=== PATIENT | female | born 1960 | race Caucasian/White ===

== ENCOUNTER 2016-11-21 09:31 | Emergency (ER) | payer MEDICAID ==
[~2016-11-21] VITALS: Ht 157.5 cm; Wt 79.4 kg
--- NOTE | 2016-11-21 09:31 | NUR ---
BROUGHT BACK TO BED #5 AND TRIAGED. REPORT GIVEN TO LUPILLO
--- NOTE | 2016-11-21 09:31 | NUR ---
Pt to bed 5, placed in gown for evaluation
[2016-11-21 09:32] VITALS: BP 147/99; PULSE 64; RESP 18; TEMP 97.6; O2SAT 97
--- NOTE | 2016-11-21 09:42 | NUR ---
Dr. Silva at bedside for evaluation
[2016-11-21] MEDS ORDERED: KETOROLAC TROMETHAMINE 60 MG/2 ML VIAL IM ONE (09:45)
--- NOTE | 2016-11-21 09:45 | NUR ---
Pt c/o left mid back pain intermittent sharp x1 month. States that it hurts to breath when the pain is here. Has not taken any OTC medication for pain. No acute distress. Breathing even, unlabored. Denies abd pain, denies n/v/d. Denies chest pain.
[2016-11-21] MEDS ORDERED: METO50TA7 PO (09:51)
[2016-11-21] MEDS ORDERED: LISI-209 PO (09:51)
[2016-11-21] MEDS ORDERED: GLU500 PO (09:51)
--- NOTE | 2016-11-21 09:51 | NUR ---
Medication reconciliation completed with information provided by patient. Any prior medication reconciliation on file was reviewed and corrected.
--- NOTE | 2016-11-21 09:52 | NUR ---
Phleb at bedside for blood draw using 2 pt identifiers.
[2016-11-21 10:05] LABS: BASOPHILS % (AUTO) 0.5 % (0.0-2.0); EOSINOPHILS # (AUTO) 0.1 K/uL (0.0-0.4); EOSINOPHILS % (AUTO) 1.6 % (0.0-4.0); HEMATOCRIT 38.2 % (36-48); LYMPHOCYTES # (AUTO) 1.6 K/uL (1.0-5.5); LYMPHOCYTES % (AUTO) 23.2 % (20.5-51.5); MEAN CORPUSCULAR HEMOGLOBIN 31 pg (27-31); MEAN CORPUSCULAR HGB CONC 34 % (32-36); MEAN CORPUSCULAR VOLUME 91 fL (79.0-98.0); MONOCYTES # (AUTO) 0.4 K/uL (0.0-1.0); MONOCYTES % (AUTO) 5.4 % (1.7-9.3); NEUTROPHILS % (AUTO) 69.3 % (40.0-70.0); PLATELET COUNT (AUTO) 279 K/uL (130-430); RED BLOOD CELL COUNT(AUTO) 4.21 MIL/uL (4.2-6.2); RED CELL DISTRIBUTION WIDTH 13.3 % (9.0-15.0); WHITE BLOOD COUNT (AUTO) 7.1 K/uL (4.8-10.8)
--- NOTE | 2016-11-21 10:09 | NUR ---
Off unit for radiology vial wheelchair.
[2016-11-21 10:12] LABS: CALCIUM 9.2 mg/dL (8.4-11.0); CREATININE 0.71 mg/dL (0.55-1.30); POTASSIUM 4.1 mmol/L (3.5-5.1)
[2016-11-21 10:17] LABS: ALBUMIN 3.8 g/dL (3.4-4.8); TOTAL BILIRUBIN 0.4 mg/dL (0.0-1.0); TOTAL PROTEIN, SERUM 7.9 g/dL (6.4-8.3)
[2016-11-21 10:19] LABS: BILIRUBIN,URINE NEGATIVE (NEGATIVE); BLOOD, URINE NEGATIVE (NEGATIVE); CLARITY/URINE CLEAR (CLEAR); COLOR,URINE YELLOW (YELLOW); GLUCOSE,URINE NEGATIVE (NEGATIVE); KETONES,URINE NEGATIVE (NEGATIVE); LEUKOCYTE ESTERASE ,URINE NEGATIVE (NEGATIVE); NITRITE, URINE NEGATIVE (NEGATIVE); PROTEIN URINE NEGATIVE (NEGATIVE); UROBILINOGEN,URINE 0.2 (0.2-1.0)
[2016-11-21 10:31] LABS: INR 0.9 (0.8-1.2); PROTHROMBIN TIME 10.1 SECS (9.5-12.5)
--- NOTE | 2016-11-21 10:50 | NUR ---
Patient resting quietly. No acute distress noted. Vital signs within normal range. States pain is better 4/10
[2016-11-21 11:29] VITALS: BP 123/73; PULSE 54; RESP 16; TEMP 96.6; O2SAT 98
--- NOTE | 2016-11-21 11:29 | NUR ---
Patient given written and verbal discharge instructions and verbalizes understanding. ER MD discussed with patient the results and treatment provided. Patient in stable condition. ID arm band removed. No Rx given. Patient educated on pain management and to follow up with PMD. Pain Scale 4/10. Opportunity for questions provided and answered.
== END 2016-11-21 11:29 | disposition home or self-care (01) ==
LOC: SED 09:32
DX: R07.89 Other chest pain (principal); E11.9 Type 2 diabetes mellitus without complications; I10 Essential (primary) hypertension
CPT/HCPCS: 36415; 71020; 80053; 81003; 82550; 84484; 84703; 85025; 85379; 85610; 85730; 93005; 96372; 99285; J1885

== ENCOUNTER 2017-04-23 11:42 | Emergency (ER) | payer MEDICAID ==
[~2017-04-23] VITALS: Ht 160 cm; Wt 81.6 kg
[2017-04-23 11:42] VITALS: BP_SYST 117
[~2017-04-23 11:42] MED LIST: GLU500 PO; LISI-209 PO; METO50TA7 PO
--- NOTE | 2017-04-23 11:42 | NUR ---
BROUGHT BACK TO BED #8 AND TRIAGED. REPORT GIVEN TO GRACE/ARNOLDO
--- NOTE | 2017-04-23 12:20 | NUR ---
Pt complains of abdominal pain that radiates to her back and left leg above the knee. Pt states the pain has been there since last Friday after a stress incontinence surgery. Pt followed up with the surgeon on , he ordered an US but still has not received it and the pain has gotten worse 06/15. Denies n/v or fever. 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 No other complaints per pt or noted.
--- NOTE | 2017-04-23 13:00 | NUR ---
ER at bedside examining patient.
[2017-04-23 13:32] LABS: BILIRUBIN,URINE NEGATIVE (NEGATIVE); BLOOD, URINE 1+ (NEGATIVE); CLARITY/URINE SL HAZY (CLEAR); COLOR,URINE YELLOW (YELLOW); GLUCOSE,URINE NEGATIVE (NEGATIVE); KETONES,URINE TRACE (NEGATIVE); LEUKOCYTE ESTERASE ,URINE 3+ (NEGATIVE); NITRITE, URINE NEGATIVE (NEGATIVE); PROTEIN URINE NEGATIVE (NEGATIVE); UROBILINOGEN,URINE 0.2 (0.2-1.0)
[2017-04-23 13:50] LABS: BACTERIA,URINE MANY /HPF (None Seen); WBC,URINE 20-50 /HPF (0-3)
--- NOTE | 2017-04-23 14:02 | NUR ---
Pt is resting comfortably in bed, still complains of pain, Dr Hurtado is aware
[2017-04-23 14:42] LABS: BASOPHILS % (AUTO) 0.4 % (0.0-2.0); EOSINOPHILS # (AUTO) 0.4 K/uL (0.0-0.4); HEMATOCRIT 37.7 % (36-48); HEMOGLOBIN 12.5 g/dL (12.0-16.0); LYMPHOCYTES # (AUTO) 1.8 K/uL (1.0-5.5); LYMPHOCYTES % (AUTO) 25.1 % (20.5-51.5); MEAN CORPUSCULAR HEMOGLOBIN 30 pg (27-31); MEAN CORPUSCULAR HGB CONC 33 % (32-36); MEAN CORPUSCULAR VOLUME 91 fL (79.0-98.0); MONOCYTES # (AUTO) 0.4 K/uL (0.0-1.0); MONOCYTES % (AUTO) 6.1 % (1.7-9.3); NEUTROPHILS # (AUTO) 4.6 K/uL (1.8-7.7); NEUTROPHILS % (AUTO) 62.4 % (40.0-70.0); PLATELET COUNT (AUTO) 249 K/uL (130-430); RED BLOOD CELL COUNT(AUTO) 4.14 MIL/uL (4.2-6.2); RED CELL DISTRIBUTION WIDTH 13.3 % (9.0-15.0); WHITE BLOOD COUNT (AUTO) 7.2 K/uL (4.8-10.8)
[2017-04-23 14:49] LABS: CALCIUM 8.9 mg/dL (8.4-11.0); CREATININE 0.88 mg/dL (0.55-1.30); INR 0.9 (0.8-1.2); POTASSIUM 4.4 mmol/L (3.5-5.1); PROTHROMBIN TIME 10.3 SECS (9.5-12.5)
[2017-04-23 14:53] LABS: ALBUMIN 3.8 g/dL (3.4-4.8); TOTAL BILIRUBIN 0.3 mg/dL (0.0-1.0); TOTAL PROTEIN, SERUM 7.7 g/dL (6.4-8.3)
--- NOTE | 2017-04-23 15:18 | NUR ---
Endorsed care to Kain
--- NOTE | 2017-04-23 15:24 | NUR ---
Patient to CT scan in stable condition
--- NOTE | 2017-04-23 15:45 | NUR ---
Patient back from CT scan in stable condition, patient able to ambulate to bathroom with slow, steady gait. Will contine to observe and assess.
[2017-04-23 16:50] VITALS: BP_SYST 148
--- NOTE | 2017-04-23 16:53 | NUR ---
Patient given written and verbal discharge instructions and verbalizes understanding. ER MD discussed with patient the results and treatment provided. Patient in stable condition. ID arm band removed. IV catheter removed intact and dressing applied, no active bleeding. No RX given. Patient educated on pain management and to follow up with PMD. Pain Scale 5. Opportunity for questions provided and answered.
--- NOTE | 2017-04-23 17:17 | NUR ---
Patient given copy of diagnostic images, no further requests or questions
== END 2017-04-23 16:53 | disposition home or self-care (01) ==
LOC: SED 11:42
DX: G89.18 Other acute postprocedural pain (principal); R10.32 Left lower quadrant pain; E11.9 Type 2 diabetes mellitus without complications; I10 Essential (primary) hypertension; Z98.890 Other specified postprocedural states
CPT/HCPCS: 36415; 71010; 80053; 81000-TC; 83605; 83690-TC; 85025; 85610-TC; 87040-TC; 87086; 93005; 93971; 99285

== ENCOUNTER 2019-01-02 20:24 | Emergency (ER) | payer MEDICAID ==
[~2019-01-02] VITALS: Ht 162.6 cm; Wt 75.3 kg
[2019-01-02 20:30] VITALS: BP_SYST 118
[2019-01-02] MEDS ORDERED: NACL 0.9% 1,000 ML IV ONE (21:26)
[2019-01-02] MEDS ORDERED: KETOROLAC TROMETHAMINE 30 MG VIAL IVP ONE (21:30)
[2019-01-02 22:02] LABS: CALCIUM 8.9 mg/dL (8.4-11.0); CREATININE 0.81 mg/dL (0.55-1.30); POTASSIUM 3.4 mmol/L (3.5-5.1)
[2019-01-02 22:07] LABS: ALBUMIN 3.5 g/dL (3.4-4.8); TOTAL BILIRUBIN 0.4 mg/dL (0.0-1.0)
[2019-01-02 22:27] LABS: WHITE BLOOD COUNT (AUTO) 5.6 K/uL (4.8-10.8)
[2019-01-02 22:28] LABS: HEMATOCRIT 36.6 % (36-48); HEMOGLOBIN 12.3 g/dL (12.0-16.0); LYMPHOCYTES % (AUTO) 25.6 % (20.5-51.5); MEAN CORPUSCULAR HEMOGLOBIN 31 pg (27-31); MEAN CORPUSCULAR HGB CONC 34 % (32-36); MEAN CORPUSCULAR VOLUME 92 fL (79.0-98.0); MONOCYTES % (AUTO) 6.5 % (1.7-9.3); NEUTROPHILS % (AUTO) 66.4 % (40.0-70.0); PLATELET COUNT (AUTO) 220 K/uL (130-430); RED BLOOD CELL COUNT(AUTO) 3.99 MIL/uL (4.2-6.2); RED CELL DISTRIBUTION WIDTH 14.2 % (9.0-15.0)
[2019-01-02 22:29] LABS: BASOPHILS % (AUTO) 0.4 % (0.0-2.0); EOSINOPHILS # (AUTO) 0.1 K/uL (0.0-0.4); EOSINOPHILS % (AUTO) 1.1 % (0.0-4.0); LYMPHOCYTES # (AUTO) 1.4 K/uL (1.0-5.5); MONOCYTES # (AUTO) 0.4 K/uL (0.0-1.0); NEUTROPHILS # (AUTO) 3.7 K/uL (1.8-7.7)
[2019-01-02 22:43] LABS: BILIRUBIN,URINE NEGATIVE (NEGATIVE); BLOOD, URINE 1+ (NEGATIVE); CLARITY/URINE CLEAR (CLEAR); COLOR,URINE YELLOW (YELLOW); GLUCOSE,URINE NEGATIVE (NEGATIVE); KETONES,URINE NEGATIVE (NEGATIVE); LEUKOCYTE ESTERASE ,URINE NEGATIVE (NEGATIVE); NITRITE, URINE NEGATIVE (NEGATIVE); PROTEIN URINE NEGATIVE (NEGATIVE); UROBILINOGEN,URINE 0.2 (0.2-1.0)
[2019-01-02 22:48] LABS: BACTERIA,URINE FEW /HPF (None Seen); WBC,URINE 0-3 /HPF (0-3)
[2019-01-02 23:10] VITALS: BP_SYST 126
== END 2019-01-02 23:10 | disposition home or self-care (01) ==
LOC: SED 20:24
DX: M54.9 Dorsalgia, unspecified (principal); E11.9 Type 2 diabetes mellitus without complications; I10 Essential (primary) hypertension; Z79.899 Other long term (current) drug therapy
CPT/HCPCS: 36415; 74176; 80053; 81000; 85025; 96374; 99284; J1885; J7030

== ENCOUNTER 2020-12-20 20:11 | Emergency (ER) | payer MEDICAID ==
[~2020-12-20] VITALS: Ht 162.6 cm; Wt 79.8 kg
[2020-12-20 20:19] VITALS: BP_SYST 137
--- NOTE | 2020-12-20 20:19 | NUR ---
Patient to ER bed 04 to gown for evaluation. Side rails up.
--- NOTE | 2020-12-20 20:20 | NUR ---
DR. GRAJEDA AT BEDSIDE TO EVALUATE PT STATUS.
--- NOTE | 2020-12-20 20:22 | NUR ---
PT AAO AND AMBULATORY REPORTING RIGHT WRIST PAIN 6/10 X ONE WEKK. PT DENIES ANY TRAUMA.
[2020-12-20] MEDS ORDERED: KETOROLAC TROMETHAMINE 15 MG VIAL IM ONE (20:30)
[2020-12-20] MEDS ORDERED: ACETAMINOPHEN 325 MG TABLET PO ONE (20:30)
--- NOTE | 2020-12-20 20:37 | NUR ---
PORTABLE XRAY AT BEDSIDE.
[2020-12-20] MEDS ORDERED: ACET325T PO (20:41)
[2020-12-20] MEDS ORDERED: IBUP-1619 PO (20:42)
--- NOTE | 2020-12-20 20:50 | NUR ---
WRIST SPLINT APPLIED, DR. GRAJEDA CHECKED PLACEMENT. PT TOLERATED WELL.
[2020-12-20 20:56] VITALS: BP_SYST 137
--- NOTE | 2020-12-20 20:56 | NUR ---
Patient given written and verbal discharge instructions and verbalizes understanding. DR. TARAS RUBIN MD discussed with patient the results and treatment provided. Patient in stable condition. ID arm band removed. Patient educated on pain management and to follow up with PMD. Pain Scale 2/10. Opportunity for questions provided and answered.
== END 2020-12-20 20:56 | disposition home or self-care (01) ==
LOC: SED 20:11
DX: M76.891 Other specified enthesopathies of right lower limb, excluding foot (principal); I10 Essential (primary) hypertension; E11.9 Type 2 diabetes mellitus without complications; Z79.899 Other long term (current) drug therapy
CPT/HCPCS: 29125; 73110; 96372; 99283; J1885

== ENCOUNTER 2021-06-24 09:58 | Emergency (ER) | payer MEDICAID, SELFPAY ==
[~2021-06-24] VITALS: Ht 157.5 cm; Wt 72.6 kg
[~2021-06-24 09:58] MED LIST changes: +ACET325T PO; +IBUP-1619 PO
[2021-06-24 10:11] VITALS: BP_SYST 139
--- NOTE | 2021-06-24 10:14 | NUR ---
Patient to ER bed 6 to gown for evaluation. Side rails up. Report given to Artem NINO.
--- NOTE | 2021-06-24 10:19 | NUR ---
RECEIVED AND IN ROOM 2. CALM, ALERT, RESP UNLABORED, SKIN WARM AND DRY. COMMUNICATES CLEARLY IN FULL COMPLETE SENTECES, STEADY GAIT. NO DISTRESS
--- NOTE | 2021-06-24 10:38 | NUR ---
Dr Marti in to assess
[2021-06-24 11:51] VITALS: BP_SYST 127
--- NOTE | 2021-06-24 11:51 | NUR ---
Patient given written and verbal discharge instructions and verbalizes understanding. ER MD discussed with patient the results and treatment provided. Patient in stable condition. ID arm band removed. Rx of ABX given. Patient educated on pain management and to follow up with PMD. Pain Scale 0/10 Opportunity for questions provided and answered. Medication side effect fact sheet provided.
[2021-06-24] MEDS ORDERED: PRED20TA PO (11:57)
[2021-06-24] MEDS ORDERED: IBUP-1971 PO (11:57)
[2021-06-24] MEDS ORDERED: KETOROLAC TROMETHAMINE 60 MG/2 ML VIAL IM ONE (12:15)
== END 2021-06-24 11:51 | disposition home or self-care (01) ==
LOC: SED 09:58
DX: J02.9 Acute pharyngitis, unspecified (principal); R05 Cough; I10 Essential (primary) hypertension; E11.9 Type 2 diabetes mellitus without complications; Z79.84 Long term (current) use of oral hypoglycemic drugs; Z79.899 Other long term (current) drug therapy
CPT/HCPCS: 96372; 99283; J1885

== ENCOUNTER 2021-09-16 09:52 | Emergency (ER) | payer MEDICAID, SELFPAY ==
[~2021-09-16] VITALS: Ht 162.6 cm; Wt 81.6 kg
[~2021-09-16 09:52] MED LIST changes: +IBUP-1971 PO; +PRED20TA PO
[2021-09-16 10:03] VITALS: BP_SYST 154
--- NOTE | 2021-09-16 10:03 | NUR ---
Pt to bed 4 for evaluation.
--- NOTE | 2021-09-16 10:03 | NUR ---
Pt AAO and ambulatory reporting right ear pain X 1 week. Pt denies any discharge from ear. Pt rates pain 10/10 on pain scale and has prior history of hypertension and diabetes.
--- NOTE | 2021-09-16 10:04 | NUR ---
ER Dr. HENDERSON at bedside examining patient.
[2021-09-16] MEDS ORDERED: IBUP-1969 PO (10:08)
[2021-09-16] MEDS ORDERED: AMOX-423 PO (10:08)
[2021-09-16] MEDS ORDERED: CORTEARS EACH EAR (10:08)
--- NOTE | 2021-09-16 10:25 | NUR ---
BG 134
--- NOTE | 2021-09-16 10:30 | NUR ---
Patient given written and verbal discharge instructions and verbalizes understanding. ER MD DR. HENDERSON discussed with patient the results and treatment provided. Patient in stable condition. ID arm band removed. Rx of AUGMENTIN 500-125, CORTISPORIN EAR DROPS AND MOTRIN given. Patient educated on pain management and to follow up with PMD. Pain Scale 3/10. Opportunity for questions provided and answered. Medication side effect fact sheet provided.
[2021-09-16 10:40] VITALS: BP_SYST 138
== END 2021-09-16 10:38 | disposition home or self-care (01) ==
LOC: SED 09:52
DX: H60.91 Unspecified otitis externa, right ear (principal); I10 Essential (primary) hypertension; E11.9 Type 2 diabetes mellitus without complications; Z79.84 Long term (current) use of oral hypoglycemic drugs; Z79.899 Other long term (current) drug therapy
CPT/HCPCS: 82962; 99283

== ENCOUNTER 2022-12-25 16:44 | Emergency (ER) | payer MEDICAID ==
[~2022-12-25] VITALS: Ht 162.6 cm; Wt 88.5 kg
[~2022-12-25 16:44] MED LIST changes: +AMOX-423 PO; +CORTEARS EACH EAR; +D-ME118S48 PO; +IBUP-1969 PO; +TRAM50TA2 PO
[2022-12-25 16:52] VITALS: BP_SYST 144
--- NOTE | 2022-12-25 16:58 | NUR ---
Placed in room 02 . Placed on compliance monitor, blood pressure machine and pulse oximeter. To gown for exam. Side rails up. Report given to MICA GARZON.
[2022-12-25] MEDS ORDERED: FUROSEMIDE 20 MG/2 ML VIAL IVP ONE (17:00)
--- NOTE | 2022-12-25 17:10 | NUR ---
PATIENT BROUGHT IN WITH FROM HOME FOR KUNZ, SORE THROAT, NASAL CONGESTION SINCE SATRUDAY. REPORTS FEVER, CHILLS NAUSEA AND VOMITING.
--- NOTE | 2022-12-25 17:25 | NUR ---
ER Dr. BEY at bedside examining patient.
[2022-12-25] MEDS ORDERED: KETOROLAC TROMETHAMINE 60 MG/2 ML VIAL IM ONE (17:30)
[2022-12-25] MEDS ORDERED: ONDANSETRON 4 MG ODT TAB PO ONE (17:45)
[2022-12-25] MEDS ORDERED: IBUP-1971 PO (18:04)
[2022-12-25] MEDS ORDERED: PSEU120T57 PO (18:04)
[2022-12-25] MEDS ORDERED: ONDA8TAB60 PO (18:04)
[2022-12-25] MEDS ORDERED: PRED20TA PO (18:04)
[2022-12-25 18:17] VITALS: BP_SYST 132
--- NOTE | 2022-12-25 18:17 | NUR ---
Patient given written and verbal discharge instructions and verbalizes understanding. ER MD discussed with patient the results and treatment provided. Patient in stable condition. ID arm band removed. Rx of MOTRIN, ONDANSETRON, PREDNISONE, SUDAFED given. Patient educated on pain management and to follow up with PMD. Pain Scale 0/10 Opportunity for questions provided and answered. Medication side effect fact sheet provided.
== END 2022-12-25 18:17 | disposition home or self-care (01) ==
LOC: SED 16:44
DX: R51.9 Headache, unspecified (principal); R11.0 Nausea; R05.9 Cough, unspecified; R09.81 Nasal congestion; J02.9 Acute pharyngitis, unspecified; E11.9 Type 2 diabetes mellitus without complications; I10 Essential (primary) hypertension; Z79.899 Other long term (current) drug therapy
CPT/HCPCS: 99283; 96372; Q0162; J1885